=== PATIENT | female | born 2000 | race Caucasian/White ===

== ENCOUNTER 2023-01-19 20:41 | Emergency (ER) | payer OTHER ==
[~2023-01-19] VITALS: Ht 160 cm; Wt 63.5 kg
--- NOTE | 2023-01-19 21:40 | NUR ---
PT AMB TO RM 5. BOY FRIEND BROUGHT HER IN FOR DANGER TO SELF / PSYCH EVAL.
--- NOTE | 2023-01-19 21:40 | NUR ---
Note coby in EDM - 01/20/23 at 0057 by [email or web address] PT AMB TO RM 5 WITH STEADY GAIT. PT IS HERE ON A HOLD 5150 / DTS. 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
--- NOTE | 2023-01-19 22:00 | NUR ---
URINE AND BLOOD SENT TO LAB.
[2023-01-19 22:17] LABS: HEMATOCRIT 35.3 % (31.2-41.9); MEAN CORPUSCULAR HEMOGLOBIN 32.7 uug (24.7-32.8); PLATELET COUNT (AUTO) 193 K/uL (179-408)
--- NOTE | 2023-01-19 22:30 | NUR ---
AT BEDSIDE FOR EVAL.
[2023-01-19 22:31] LABS: *BILIRUBIN,URIN NEGATIVE (NEGATIVE); *CLARITY,URINE CLEAR (CLEAR); *COLOR,URINE YELLOW (YELLOW); *KETONES,URINE NEGATIVE (NEGATIVE); *UROBILINOGEN,URINE 0.2 E.U./dl (NORMAL); LEUKOCYTE ESTERASE ,URINE NEGATIVE (NEGATIVE); NITRITE, URINE NEGATIVE (NEGATIVE); UGLUCOSE NEGATIVE (NEGATIVE)
[2023-01-19 22:33] LABS: *BLOOD, URINE NEGATIVE (NEGATIVE)
[2023-01-19 22:41] LABS: CARBON DIOXIDE 29 mmol/L (21-32); CHLORIDE 104 mmol/L (98-107); CREATININE 0.7 mg/dL (0.6-1.3); POTASSIUM 3.9 mmol/L (3.5-5.1); UREA NITROGEN, BLOOD 10 mg/dL (7-18)
[2023-01-19 22:45] LABS: ALANINE AMINOTRANSFERASE 29 U/L (14-59); ALKALINE PHOSPHATASE 66 U/L (50-136); ASPARTATE AMINOTRANSFERASE 27 U/L (15-37); BILIRUBIN,DIRECT 0.1 mg/dL (0.0-0.2); BILIRUBIN,TOTAL 0.4 mg/dL (0.2-1.0); TOTAL PROTEIN, SERUM 6.8 g/dL (6.4-8.2)
[2023-01-19 22:45] LABS: *AMPHETAMINE, URINE POSITIVE (NEGATIVE); *CANNABINOID, URINE NEGATIVE (NEGATIVE); *COCCAINE, URINE NEGATIVE (NEGATIVE); *PHENCYCLIDINE SCREEN,URINE NEGATIVE (NEGATIVE)
[2023-01-19 22:46] LABS: ACETAMINOPHEN < 2.0 ug/mL (10-30)
--- NOTE | 2023-01-19 23:20 | NUR ---
PT LEFT ER AND WAS BROUGHT BACK BY SECURITY PER DR Price SIMMS ORDER. PT PLACED ON GURNEY IN 2 PT HARD RESTRAINTS PER MD ORDER.
--- NOTE | 2023-01-19 23:40 | NUR ---
MICHAEL LAYOUT FORMER AT BEDSIDE TO EVALUATE PT.
[2023-01-19] MEDS ORDERED: diphenhydrAMINE 50 MG/1 ML VIAL IM ONE (23:45)
[2023-01-19] MEDS ORDERED: LORAZEPAM 2 MG/1 ML VIAL IM ONE (23:45)
[2023-01-19] MEDS ORDERED: diphenhydrAMINE 50 MG/1 ML VIAL ONE (23:45)
[2023-01-19] MEDS ORDERED: HALOPERIDOL LACTATE 5 MG/1 ML VIAL IM ONE (23:45)
[2023-01-19] MEDS ORDERED: HALOPERIDOL LACTATE 5 MG/1 ML VIAL ONE (23:45)
[2023-01-19] MEDS ORDERED: LORAZEPAM 2 MG/1 ML VIAL ONE (23:46)
--- NOTE | 2023-01-20 00:15 | NUR ---
PT GIVEN H2O, PT JARROD WELL WITH NO N/V.
--- NOTE | 2023-01-20 00:27 | NUR ---
MICHAEL , LIABILITY CLAIMS ADJUSTER , PLACED PT ON A 5150 / DTS.
--- NOTE | 2023-01-20 02:25 | NUR ---
PT SLEEPING QUIETLY WITH NO CMPLAINTS AND NAD OBSERVED.
--- NOTE | 2023-01-20 03:14 | NUR ---
Patient continues to rest without any c/o pain or discomfort. No s/s of any distress noted, will continue to monitor.
--- NOTE | 2023-01-20 04:00 | NUR ---
PT AWOKE AND GIVEN H2O, WITH NO N/V, VSS AND NAD OBSERVED.
[2023-01-20] MEDS ORDERED: PHYTONADIONE 10 MG/1 ML AMPUL SQ ONE (05:00)
--- NOTE | 2023-01-20 06:20 | NUR ---
PT AWOKE WAS GIVEN H2O, VSS AND NAD OBSERVED.
--- NOTE | 2023-01-20 06:23 | NUR ---
MICHAEL , PLASTER LATHER CALLED TO CHECK ON PT. WILL REMOVE ONE RESTRAINT
--- NOTE | 2023-01-20 07:08 | NUR ---
REPORT GIVEN TO CECILIO JOHNSON.
--- NOTE | 2023-01-20 08:02 | NUR ---
Pt is awake A/O x3 at this time, denies SI/HI.
--- NOTE | 2023-01-20 08:10 | NUR ---
Breakfast tray provided, pt ate w/ great appettite. Placed a call JB García for re evaulate.
--- NOTE | 2023-01-20 09:10 | NUR ---
Pt 5150 hold discontinued by PET graduate civil engineer. Pt refused to be placed in [facility] hospital and states going to her own drug tx center.
[2023-01-20] MEDS ORDERED: NICOTINE POLACRILEX 4 MG GUM-PK OF TEN BC PRN (09:15)
--- NOTE | 2023-01-20 09:31 | NUR ---
Pt is resting in bed/walking in room, cooperative.
--- NOTE | 2023-01-20 09:58 | NUR ---
Maria Del Carmen Kerr from PET at the bedside for Re eval.
--- NOTE | 2023-01-20 10:10 | NUR ---
Patient discharged in stable condition. Written and verbal after care instructions given. Patient verbalizes understanding of instructions. Stressed follow up or return to ER for worsening s/s.
[2023-01-20 10:36] VITALS: BP 106/60; TEMP 98.1; O2SAT 99
== END 2023-01-20 10:37 | disposition home or self-care (01) ==
LOC: ER 20:41
DX: F29 Unspecified psychosis not due to a substance or known physiological condition (principal); F19.10 Other psychoactive substance abuse, uncomplicated; Y90.0 Blood alcohol level of less than 20 mg/100 ml
CPT/HCPCS: 80076; 80048; 81003; 82607; 85025; 87426; 36415; 99285; 96372 ×3; 80299; 80320; 80307; J1200; J1630; J2060; A4663; G0480